=== PATIENT | female | born 1935 | race Caucasian/White ===

== ENCOUNTER 2016-07-30 13:00 | Outpatient (RCR) | payer MEDICARE ==
[~2016-07-30 13:00] MED LIST: ALEN70TA47 PO; FURO-125 PO; TRM50T PO
== END 2016-09-02 | disposition home or self-care (01) ==
LOC: DT 13:00
PROVIDERS: ATTEND Family Medicine
DX: I11.0 Hypertensive heart disease with heart failure (principal); E66.9 Obesity, unspecified; Z68.34 Body mass index [BMI] 34.0-34.9, adult
CPT/HCPCS: G0447 ×4